=== PATIENT | male | born 1945 | race Caucasian/White ===

== ENCOUNTER 2020-10-25 21:01 | Emergency (ER) | payer MEDICARE, OTHER, SELFPAY ==
[2020-10-25 21:05] VITALS: BP 175/101; PULSE 79; RESP 20; TEMP 36.7; O2SAT 97
--- NOTE | 2020-10-25 21:27 | DI.CT.S_ITS ---
PROCEDURE: CT HEAD/BRAIN WO CON INDICATIONS: fall with head injury, on aspirin and plavix TECHNIQUE: Noncontrast 4.5 mm thick angled axial sections acquired from the foramen magnum to the vertex, with coronal and sagittal reformats. For radiation dose reduction, the following was used: automated exposure control, adjustment of mA and/or kV according to patient size. COMPARISON: None. FINDINGS: Image quality: Excellent. CSF spaces: Basal cisterns are patent. No extra-axial fluid collections. The ventricles are symmetric in size and shape. Brain: No intracranial bleeds or masses. There is moderate cerebral volume loss for age, with resultant ventricular and sulcal prominence. There are mild periventricular and deep white matter chronic small vessel ischemic changes. There is intracranial internal carotid artery atherosclerosis. Skull and face: Calvarium and visualized facial bones appear intact, without suspicious lesions. There is a small left parietal cephalohematoma. Sinuses: Visualized sinuses and mastoids are clear. IMPRESSION: 1. No acute intracranial abnormalities. 2. Moderate cerebral volume loss and mild chronic microvascular ischemic changes. 3. Small left parietal cephalohematoma. Dictated by: Linda Felton M.D. on 10/25/2020 at 21:53 Approved by: Linda Felton M.D. on 10/25/2020 at 21:55
[2020-10-25] MEDS: LIDOCAINE 1% W/EPI 1 ML SUBCUT (21:31)
--- NOTE | 2020-10-25 21:43 | ED_ITS ---
HPI - Fall General Chief Complaint: Trauma Stated Complaint: fall, hit his head on rock Time Seen by Provider: 10/25/20 21:05 Source: patient Mode of arrival: Ambulatory Limitations: no limitations History of Present Illness HPI Narrative: 75-year-old male nonsmoker with history of hypertension hyperlipidemia on aspirin and Plavix presents with his in the chief complaint of a fall from ground level in which she stumbled, caught his foot on a rock and fell onto his left side, striking the left occiput. He denies any loss of consciousness, nausea or vomiting. He denies any blurred vision, trouble with speech or focal neurologic symptoms such as numbness, tingling or weakness. Modified trauma activated given fall, head injury and anti-platelet agents. He denies any neck or back pain. He is otherwise well and free of complaint MD complaint: fall Onset (ago): minute(s) Fall from: standing Fall witnessed: yes, by family Place fall occurred: other Loss of consciousness: none Prolonged down time: no Symptoms prior to fall: none Context: tripped/slipped Location of injury: head Related Data Home Medications Medication Instructions Recorded Confirmed ASPIRIN (Aspirin Low Dose) 81 mg PO Q DAY #0 12/14/09 Atorvastatin Calcium (Lipitor) 80 mg PO Q DAY #0 12/14/09 LISINOPRIL (Zestril / Prinivil) 5 mg PO Q DAY #0 12/14/09 MAGNESIUM CHLORIDE SR (MAG DELAY) #0 12/14/09 MULTIVITAMIN (Multivitamin 1 cap PO EVERY DAY #0 12/14/09 -) Review of Systems Constitutional Constitutional: Denies chills, Denies fatigue, Denies fever(s), Denies frequent falls, Denies lethargy and Denies weakness Eyes Eyes: Denies change in vision, Denies eye discharge, Denies irritation and Denies loss of vision ENT Ears, Nose, Mouth, and Throat: Denies change in voice, Denies dizziness, Denies neck pain, Denies sore throat and Denies throat swelling Cardiovascular Cardiovascular: Denies chest pain, Denies irregular heart rhythm, Denies lightheadedness, Denies palpitations, Denies dyspnea, Denies dyspnea on exertion and Denies orthopnea Respiratory Respiratory: Denies cough, Denies dyspnea, Denies dyspnea on exertion and Denies wheezing Gastrointestinal Gastrointestinal: Denies abdominal pain, Denies change in bowel habits, Denies diarrhea, Denies nausea and Denies vomiting Musculoskeletal Musculoskeletal: Denies neck pain and Denies numbness Integumentary/Breasts Skin/Breast: Denies pruritus, Denies erythema, Denies rash and Reports wounds Neurologic Neurologic: Denies behavioral changes, Denies confusion, Denies dizziness, Denies frequent falls, Denies loss of vision, Denies numbness and Denies weakness Psychiatric Psychiatric: Denies anxiety, Denies behavioral changes, Denies confusion, Denies depression, Denies homicidal ideation and Denies suicidal ideation Endocrine Endocrine: Denies fatigue, Denies flushing and Denies palpitations Hematologic/Lymphatic Hematologic/Lymphatic: Denies easy bruising Allergic/Immunologic Allergic/Immunologic: Denies urticaria, Denies throat swelling and Denies wheezing Patient History Social History Smoking Status: Never smoker Smoking Status: Never smoker alcohol intake frequency: 0-2 drinks per day Substance Use Type: does not use Exam Narrative Exam Narrative: GENERAL: [75] year old patient appears stated age. Well- nourished, well-developed patient, in mild distress. GCS 15, a and O x3 HEAD: Scalp laceration, large amount of bright red blood. NO depressed skull fracture EYES: Pupils equal round and reactive. Extraocular motions intact. No scleral icterus. No injection or drainage. ENT: Nose without bleeding, purulent drainage. Throat without erythema, tonsillar hypertrophy or exudate. Airway patent. NECK: Trachea midline. Non tender CARDIOVASCULAR: Regular rate and rhythm without murmurs, gallops, or rubs. RESPIRATORY: Clear to auscultation. Breath sounds equal bilaterally. No wheezes, rales, or rhonchi. GASTROINTESTINAL: Abdomen soft, non-tender, nondistended. EXTREMITIES: No edema or joint tenderness. BACK: Nontender without deformity or crepitance. No flank tenderness. NEURO: AOx3. SKIN: No rash or erythema of visible areas Initial Vital Signs Initial Vital Signs: Vital Signs Temperature 98.0 F 10/25/20 21:05 Pulse Rate 79 10/25/20 21:05 Respiratory Rate 20 10/25/20 21:05 Blood Pressure 175/101 H 10/25/20 21:05 Pulse Oximetry 97 10/25/20 21:05 Procedures Laceration Repair Laceration 1: Site: scalp Side (If applicable): left Size (cm): 2 Description: linear and clean Depth: involves muscle layer Local Anesthetic: lidocaine 1% and with epi Amount of anesthesia used (mL): 4 Pre-repair: wound explored, irrigated extensively and deep structures intact Skin layer closed with: nylon Size (cm): 3-0 (along with 3 john) Number of sutures: 1 Technique: simple, interrupted Course Orders Ordered: ED Orders 10/25/20 21:27 CT head/brain wo con Stat Discontinued Medications Lidocaine/Epinephrine (Lidocaine 1% W/Epi) 1 ml SUBCUT NOW ONE Stop: 10/25/20 21:28 Last Admin: 10/25/20 21:31 Dose: 1 ml Documented by: ROSEMARY Vital Signs Vital signs: Vital Signs - 8 hr 10/25/20 22:50 Pulse Rate 59 L Respiratory Rate 15 Blood Pressure 141/88 H Pulse Oximetry 98 MDM - Fall Imaging Data CT scan - head: Radiologist's Impression: No acute intracranial abnormalities Discharge Plan Departure Patient Disposition: Home Clinical Impression: Laceration of occipital scalp Qualifiers: Encounter type: initial encounter Qualified Code(s): S01.01XA - Laceration without foreign body of scalp, initial encounter Instructions: DI for Laceration Repair of the Scalp Activity Restrictions/Additional Instructions: Please keep the wound clean and dry to the best of your ability. Please monitor for signs of infection such as redness to the skin or increasing pain. Have the 1 suture, and 3 jhon removed by your doctor in about 7 days. If you are unable to get into your doctor, we would be happy to remove them in that same timeframe. Prescriptions: No Action ASPIRIN (Aspirin Low Dose) 81 mg PO Q DAY Qty: 0 RF: 0 LISINOPRIL (Zestril / Prinivil) 5 mg PO Q DAY Qty: 0 RF: 0 Atorvastatin Calcium (Lipitor) 80 mg PO Q DAY Qty: 0 RF: 0 MAGNESIUM CHLORIDE SR (MAG DELAY) Qty: 0 RF: 0 MULTIVITAMIN (Multivitamin -) 1 cap PO EVERY DAY Qty: 0 RF: 0
[2020-10-25 22:50] VITALS: BP 141/88; PULSE 59; RESP 15; O2SAT 98
== END 2020-10-25 23:29 | disposition home or self-care (01) ==
PROVIDERS: Emergency Provider Emergency Medicine
DX: S01.01XA Laceration without foreign body of scalp, initial encounter (principal); W19.XXXA Unspecified fall, initial encounter
CPT/HCPCS: 12002; 70450; 99284

== ENCOUNTER 2020-11-02 09:11 | Emergency (ER) | payer MEDICARE, OTHER, SELFPAY ==
[2020-11-02 09:16] VITALS: BP 147/69; PULSE 60; RESP 14; TEMP 36.2; O2SAT 99
--- NOTE | 2020-11-02 09:21 | ED.RECABL ---
HPI - Recheck/Abnormal Lab/Rx General Chief Complaint: Recheck/Abnormal Lab/Rx Stated Complaint: john/sutures removed from last Monday Time Seen by Provider: 11/02/20 09:15 Source: patient Mode of arrival: Ambulatory Limitations: no limitations History of Present Illness HPI narrative: 75M nonsmoker on Plavix returns for evaluation and hopeful removal of sutures and john. I personally saw him last week when he suffered a ground level fall and head injury. John were placed as well as 1 large, deep biting suture to achieve hemostasis. He denies any ongoing bleeding, fever or chills. He has had no confusion, headaches or vomiting. He is otherwise well and free of complaint. MD complaint: suture/staple removal Initial visit (ago): day(s) Initial visit for: laceration Returns today for: staple/stitch removal Symptoms since prior visit: no new symptoms Associated symptoms: none Related Data Home Medications Medication Instructions Recorded Confirmed ASPIRIN (Aspirin Low Dose) 81 mg PO Q DAY #0 12/14/09 Atorvastatin Calcium (Lipitor) 80 mg PO Q DAY #0 12/14/09 LISINOPRIL (Zestril / Prinivil) 5 mg PO Q DAY #0 12/14/09 MAGNESIUM CHLORIDE SR (MAG DELAY) #0 12/14/09 MULTIVITAMIN (Multivitamin 1 cap PO EVERY DAY #0 12/14/09 -) Allergies Allergy/AdvReac Type Severity Reaction Status Date / Time No Known Drug Allergies Allergy Verified 11/02/20 09:19 Review of Systems Constitutional Constitutional: Denies chills, Denies fatigue, Denies fever(s), Denies frequent falls, Denies lethargy and Denies weakness Eyes Eyes: Denies change in vision, Denies eye discharge, Denies irritation and Denies loss of vision ENT Ears, Nose, Mouth, and Throat: Denies change in voice, Denies dizziness, Denies neck pain, Denies sore throat and Denies throat swelling Cardiovascular Cardiovascular: Denies chest pain, Denies irregular heart rhythm, Denies lightheadedness, Denies palpitations, Denies dyspnea, Denies dyspnea on exertion and Denies orthopnea Respiratory Respiratory: Denies cough, Denies dyspnea, Denies dyspnea on exertion and Denies wheezing Gastrointestinal Gastrointestinal: Denies abdominal pain, Denies change in bowel habits, Denies diarrhea, Denies nausea and Denies vomiting Musculoskeletal Musculoskeletal: Denies neck pain and Denies numbness Integumentary/Breasts Skin/Breast: Denies pruritus, Denies erythema, Denies rash and Denies wounds Neurologic Neurologic: Denies behavioral changes, Denies confusion, Denies dizziness, Denies frequent falls, Denies loss of vision, Denies numbness and Denies weakness Psychiatric Psychiatric: Denies anxiety, Denies behavioral changes, Denies confusion, Denies depression, Denies homicidal ideation and Denies suicidal ideation Endocrine Endocrine: Denies fatigue, Denies flushing and Denies palpitations Hematologic/Lymphatic Hematologic/Lymphatic: Denies easy bruising Allergic/Immunologic Allergic/Immunologic: Denies urticaria, Denies throat swelling and Denies wheezing Patient History Social History Smoking Status: Never smoker Smoking Status: Never smoker alcohol intake frequency: 0-2 drinks per day Substance Use Type: does not use Exam Narrative Exam Narrative: GEN: AOx3 and in mild distress EYES: Pupils are equal, round, and reactive to light and accommodation. Extraoccular muscles are intact bilaterally. There is no subconjunctival hemorrhage or exudate. CHEST: Lungs are clear to auscultation bilaterally and free of wheezes, rales, or rhonchi. Heart rate is regular rhythm, there are no murmurs, clicks, rubs, or gallops. There is no chest wall tenderness. ABD: Abdomen is soft and nontender. There is no guarding or rebound. Bowel sounds are normal in all 4 quadrants. There is no mass or organomegaly. EXT: Full painless ROM of all extremities with no loss of sensation or strength. SKIN: scab formed over laceration, soaked, then removed john and sutures myself. Initial Vital Signs Initial Vital Signs: Vital Signs Temperature 97.1 F L 11/02/20 09:16 Pulse Rate 60 11/02/20 09:16 Respiratory Rate 14 11/02/20 09:16 Blood Pressure 147/69 H 11/02/20 09:16 Pulse Oximetry 99 11/02/20 09:16 Course Orders Ordered: Discontinued Medications Hydrogen Peroxide/Benzyl Alcohol (Hydrogen Peroxide 473 Ml Solution) 60 ml TOP NOW ONE Stop: 11/02/20 09:23 Last Admin: 11/02/20 09:24 Dose: 60 ml Documented by: GILBERT Vital Signs Vital signs: Vital Signs - 8 hr 11/02/20 09:16 Temperature 97.1 F L Pulse Rate 60 Respiratory Rate 14 Blood Pressure 147/69 H Pulse Oximetry 99 Discharge Plan Departure Patient Disposition: Home Clinical Impression: Encounter for removal of john Laceration of occipital scalp Qualifiers: Encounter type: initial encounter Qualified Code(s): S01.01XA - Laceration without foreign body of scalp, initial encounter Instructions: DI for Suture Removal Activity Restrictions/Additional Instructions: *You have been diagnosed with [suture/staple removal] *What to do: *Please continue to take your regular medications as directed. [ ] New medication prescriptions sent to your pharmacy: [ ] [ ] New medication written as a paper prescription [ x] No new medications given *Return to Emergency Department if you should have any new, worsening or concerning symptoms, such as [fever greater than 101 F, shaking chills, worsening pain, persistent vomiting or other bothersome symptoms] Prescriptions: No Action ASPIRIN (Aspirin Low Dose) 81 mg PO Q DAY Qty: 0 RF: 0 LISINOPRIL (Zestril / Prinivil) 5 mg PO Q DAY Qty: 0 RF: 0 Atorvastatin Calcium (Lipitor) 80 mg PO Q DAY Qty: 0 RF: 0 MAGNESIUM CHLORIDE SR (MAG DELAY) Qty: 0 RF: 0 MULTIVITAMIN (Multivitamin -) 1 cap PO EVERY DAY Qty: 0 RF: 0
[2020-11-02] MEDS: HYDROGEN PEROXIDE 473 ML SOLUTION 60 ML TOP (09:24)
== END 2020-11-02 10:22 | disposition home or self-care (01) ==
PROVIDERS: Emergency Provider Emergency Medicine
DX: Z48.1 Encounter for planned postprocedural wound closure (principal)
CPT/HCPCS: 99281; 99282